=== PATIENT | male | born 1950 ===

== ENCOUNTER 2018-11-04 16:00 | Inpatient (IN) | payer OTHER ==
[~2018-11-04] VITALS: Ht 180.3 cm; Wt 74.8 kg
[~2018-11-04 16:00] MED LIST: ENALAPRIL MALEA20 MG
--- NOTE | 2018-11-04 16:22 | NUR ---
PTE REFIERE PIE DERECHO HINCHADO DESDE HACE UNOS BARTH REFIERE DOLOR Y ABSSESO SE JENNY S/V YSE UBIAC EN AREA DE OBSERVACION
--- NOTE | 2018-11-04 17:44 | NUR ---
SE ORIENTA PTE SOBRE TX MEDICO EL CUAL REFIERE ENTENDER.SE LE EXTRAEN MUESTRAS Y SE CANALIZA BAJO MEDIDAS ASEPTICAS.SE ADMINISTRA MEDICAMENTO REY ORDEN MEDICA Y SE NOTIFICA CT.
--- NOTE | 2018-11-05 00:38 | NUR ---
PACIENTE ALERTA Y ORIENTADO SE ACOMODA PACIENTE EN AREA DE SECSION K. SE ORIENTA A PACIENTE SOBRE TRATAMIENTO MEDICO. SE INSERTA SONADA URINARIA SE OBSERVA ORINA CON MOJGAN IBARRA OSCURO.
--- NOTE | 2018-11-05 02:07 | NUR ---
SE DRENA 1300ML DE HEMATURIA.
--- NOTE | 2018-11-05 07:15 | NUR ---
SE RECIBE DE TURNO ANTERIOR EN LYNSEY K5,MASCULINO ALERTA, ORIENTADO EN DORIS ESFERAS,DECANSANDO EN CAMA NIVEL MAS BAJO,BARANDAS ELEVADAS,FRENOS,CABELLO DE IDENTIFICACION COLOCADOS POR SEGURIDAD. SE OBSERVA CON BUEN PATRON RESPIRATORIO,PIEL TIBIA AL TACTO. AREA DE VENOPUNCION LIMPIA,SECA,RANDI DE S/S EDEMA Y/O ERITEMA;RECIBIENDO 0.9%NSS 1,000ML @80ML/HR. PENDIENTE CONSULTA CON DR. BEST POR FALLO RENAL.
[2018-11-05] MEDS ORDERED: LOSARTAN POTASS50 MG PO (13:45)
[2018-11-05] MEDS ORDERED: SULINDAC200 MG PO (13:45)
[2018-11-05] MEDS ORDERED: LOSARTAN POTAS100 MG PO (13:46)
[2018-11-17] MEDS ORDERED: TAMSULOSIN HCL0.4 MG PO (11:26)
[2018-11-17] MEDS ORDERED: CIPRO250 MG PO (11:26)
[2018-11-17] MEDS ORDERED: PANTOPRAZOLE SO40 MG PO (11:26)
== END 2018-11-17 14:09 | disposition home or self-care (01) | DRG 580 ==
LOC: ER 16:00 → MEDI 11-05 11:13
PROVIDERS: ADMIT Internal Medicine
PROC: 30233N1 Transfusion of Nonautologous Red Blood Cells into Peripheral Vein, Percutaneous Approach (ICD-10-PCS; 2018-11-05)
PROC: 0T9B70Z Drainage of Bladder with Drainage Device, Via Natural or Artificial Opening (ICD-10-PCS; 2018-11-05)
PROC: B54BZZZ Ultrasonography of Right Lower Extremity Veins (ICD-10-PCS; 2018-11-06)
PROC: 079H3ZX Drainage of Right Inguinal Lymphatic, Percutaneous Approach, Diagnostic (ICD-10-PCS; principal; 2018-11-10)
DX: L02.214 Cutaneous abscess of groin (principal); N17.8 Other acute kidney failure; D62 Acute posthemorrhagic anemia; N39.0 Urinary tract infection, site not specified; E87.2 Acidosis; I82.4Z3 Acute embolism and thrombosis of unspecified deep veins of distal lower extremity, bilateral; C85.95 Non-Hodgkin lymphoma, unspecified, lymph nodes of inguinal region and lower limb; N13.39 Other hydronephrosis; R19.09 Other intra-abdominal and pelvic swelling, mass and lump; E86.0 Dehydration; N40.0 Benign prostatic hyperplasia without lower urinary tract symptoms; E87.8 Other disorders of electrolyte and fluid balance, not elsewhere classified; I12.9 Hypertensive chronic kidney disease with stage 1 through stage 4 chronic kidney disease, or unspecified chronic kidney disease; N18.2 Chronic kidney disease, stage 2 (mild); R31.0 Gross hematuria; K40.90 Unilateral inguinal hernia, without obstruction or gangrene, not specified as recurrent; E87.5 Hyperkalemia; N41.1 Chronic prostatitis

== ENCOUNTER 2018-11-27 11:20 | Emergency (ER) | payer OTHER ==
[~2018-11-27] VITALS: Ht 180.3 cm; Wt 74.8 kg
[~2018-11-27 11:20] MED LIST changes: +CIPRO250 MG PO; +LOSARTAN POTAS100 MG PO; +LOSARTAN POTASS50 MG PO; +PANTOPRAZOLE SO40 MG PO; +SULINDAC200 MG PO; +TAMSULOSIN HCL0.4 MG PO
== END 2018-11-28 13:02 | disposition home or self-care (01) ==
LOC: ER 11:20
DX: I89.0 Lymphedema, not elsewhere classified (principal); L02.214 Cutaneous abscess of groin; I87.2 Venous insufficiency (chronic) (peripheral); R60.0 Localized edema; M79.604 Pain in right leg; D62 Acute posthemorrhagic anemia; C85.95 Non-Hodgkin lymphoma, unspecified, lymph nodes of inguinal region and lower limb